=== PATIENT | female | born 1930 | race Caucasian/White ===

== ENCOUNTER 2017-12-24 10:01 | Emergency (ER) | payer OTHER ==
[2017-12-24 10:43] LABS: Arterial Blood Carboxyhemoglob 0.9 % (0-1.5); Blood Gas Oxyhemoglobin 87.2 % (94-97); Blood O2 Saturation 88.9 % (92-98.5)
[2017-12-24 10:55] LABS: Absolute Monocytes 1.6 K/uL (0.1-1.3); Absolute Neutrophil 23.6 K/uL (1.8-8.0); Basophils % 0.1 % (0-1.3); Hematocrit 31.8 % (36.0-45.0); Lymphocytes % 7.3 % (15.3-44.8); MCH 24.1 pg (27.0-35.0); MCV 80.4 fL (80-100); MPV 8.8 fL (7.6-11.3); RBC Red Blood Cell Count 3.96 M/uL (3.86-4.86)
[2017-12-24] MEDS ORDERED: PIPER/TAZO/NS 3.375gm 3.375 GM/100 ML BAG ONE (10:56)
[2017-12-24 10:58] LABS: Protime INR 1.28
[2017-12-24 11:06] LABS: Potassium 3.8 mEq/L (3.6-5.0)
[2017-12-24 11:12] LABS: Albumin 2.3 g/dL (3.2-5.5); Bilirubin Direct 0.1 mg/dL (0-0.2); Bilirubin Total 0.4 mg/dL (0.3-1.2); Protein, Total 7.1 g/dL (6.0-8.3)
--- NOTE | 2017-12-24 11:18 | RAD REPORT ---
EXAM DESCRIPTION: RAD - Chest Single View - 12/24/2017 11:02 am CLINICAL HISTORY: Decreased O2 saturation, possible pneumonia COMPARISON: October 31 chest film, October 29 CT chest TECHNIQUE: AP portable chest image was obtained 1057 hours . FINDINGS: Patient has a baseline interstitial fibrotic pattern. Left base opacification is present w ith left hemidiaphragm and left heart border obscured. The amount of pleural fluid on the left is dim inished slightly from the October examination. Trachea is midline. No measurable right-sided pleural ef fusion. Heart size is normal range. Sternotomy wires are in place. No pneumothorax. No acute bone pro cess identified. No acute aortic findings suspected. IMPRESSION: Left pleural effusion with left base infiltrate and/ or atelectasis. Left pleural effusion is slightly smaller than the October examination.
--- NOTE | 2017-12-24 12:46 | EDPHYS ---
Physician Documentation [facility] Name: Alyssa Alan Age: 87 yrs Sex: Female : 1930 Arrival Date: 12/24/2017 Time: 10:11 Bed 6 Private MD: ED Physician Arden Strauss HPI: 12/24 12:41 This 87 yrs old Female presents to ER via EMS with complaints of Shortness Of gs Breath. 12:41 The patient has shortness of breath at rest. Onset: The symptoms/episode began/occurred gs 2 day(s) ago, and became worse. Duration: The symptoms are continuous. The patient's shortness of breath has no apparent modifying factors. Severity of symptoms: At their worst the symptoms were moderate in the emergency department the symptoms are unchanged. Historical: - Allergies: 10:33 Iodine; ae1 10:33 SHELLFISH; ae1 - Home Meds: 10:33 Tylenol 325 mg oral tab 2 tabs every 6 hours [Active]; GlucaGen HypoKit 1 mg injection ae1 solr [Active]; duloxetine 30 mg oral cpDR 1 cap once daily [Active]; Nystatin Topical [Active]; Lasix 40 mg Oral tab 1 tab once daily [Active]; atenolol 100 mg Oral tab 1 tab once daily [Active]; docusate sodium 100 mg Oral tab 2 tabs once daily for Constipation [Active]; tramadol 50 mg Oral tab 1 tab twice a day [Active]; lisinopril 40 mg Oral tab 1 tab once daily [Active]; potassium chloride 20 mEq Oral pack 1 packet 2 times per day [Active]; Namenda 10 mg oral tab 1 tab 2 times per day [Active]; Norvasc 10 mg Oral tab 1 tab once daily [Active]; levothyroxine 125 mcg tab 1 tab once daily [Active]; trazodone 50 mg Oral tab 1 tab once a day at bedtime [Active]; Myrbetriq 50 mg oral Tb24 1 tab once daily [Active]; Aricept 10 mg Oral tab 1 tab once daily [Active]; lorazepam 1 mg Oral tab 1 tab once daily [Active]; benzonatate 200 mg oral cap 1 cap every eight hours [Active]; [place] 5-325 mg Oral tab 1 tab every 6 hours [Active]; Albuterol Inhl every 6 hours [Active]; Zyrtec 10 mg Oral tab 1 tab once daily [Active]; - PMHx: 10:33 C-1 Fracture; CHF; COPD; Dementia; Diabetes - IDDM; Hypertension; Hypothyroidism; ae1 mesothelioma; - Immunization history:: Adult Immunizations up to date. - Social history:: Smoking status: Patient/guardian denies using tobacco. ROS: 12:41 Unable to obtain ROS due to baseline dementia. gs Exam: 12:41 Head/Face: Normocephalic, atraumatic. Eyes: Pupils equal round and reactive to light, gs extra-ocular motions intact. Lids and lashes normal. Conjunctiva and sclera are non-icteric and not injected. Cornea within normal limits. Periorbital areas with no swelling, redness, or edema. ENT: Nares patent. No nasal discharge, no septal abnormalities noted. Tympanic membranes are normal and external auditory canals are clear. Oropharynx with no redness, swelling, or masses, exudates, or evidence of obstruction, uvula midline. Mucous membranes moist. Neck: Trachea midline, no thyromegaly or masses palpated, and no cervical lymphadenopathy. Supple, full range of motion without nuchal rigidity, or vertebral point tenderness. No Meningismus. Chest/axilla: Normal chest wall appearance and motion. Nontender with no deformity. No lesions are appreciated. 12:41 Abdomen/GI: Soft, non-tender, with normal bowel sounds. No distension or tympany. No guarding or rebound. No evidence of tenderness throughout. Back: No spinal tenderness. No costovertebral tenderness. Full range of motion. Skin: Warm, dry with normal turgor. Normal color with no rashes, no lesions, and no evidence of cellulitis. MS/ Extremity: Pulses equal, no cyanosis. Neurovascular intact. Full, normal range of motion. 12:41 Constitutional: The patient appears alert, awake. 12:41 Cardiovascular: Rate: normal, Rhythm: regular. 12:41 ECG was reviewed by the Attending Physician. 12:41 Respiratory: moderate respiratory distress is noted, Respirations: tachypnea, Breath sounds: rhonchi, wheezin:41 Neuro: Cranial nerves: no acute changes, Motor: moves all fours, Sensation: no obvious gross deficits. Vital Signs: 10:12 BP 138 / 52; Pulse 64; Resp 26; Temp 98.3(TE); Pulse Ox 88% on R/A; Weight 54.43 kg (R);ae1 11:20 BP 133 / 59; Pulse 60; Resp 25; Pulse Ox 93% ; rv 13:45 BP 105 / 81; Pulse 69; Resp 24; Pulse Ox 90% on BiPAP; jl7 14:47 BP 164 / 37; Pulse 56; Resp 22; Pulse Ox 89% on BiPAP; jl7 16:26 BP 112 / 97; Pulse 55; Resp 20; Pulse Ox 92% on BiPAP; ae1 14:47 Patient is pulling on Bipap mask. jl7 MDM: 10:29 Patient medically screened. gs 12:41 Differential diagnosis: Myocardial Infarction pneumonia, pulmonary edema, Sepsis. Data gs reviewed: vital signs, nurses notes. ED course: daughter who is mpoa wishes to place on hospice and says also is pts wishes. will make arrangements for oodnr and return to me on hospice. 12/24 10:25 Order name: Glucose, Ancillary Testing; Complete Time: 10:30 EDMS 12/24 10:31 Order name: Basic Metabolic Panel; Complete Time: 11:45 12/24 10:31 Order name: Blood Culture Adult (2) 12/24 10:31 Order name: BNP; Complete Time: 11:45 12/24 10:31 Order name: CBC with Diff; Complete Time: 11:45 12/24 10:31 Order name: Lactate; Complete Time: 11:45 12/24 10:31 Order name: LFT's; Complete Time: 11:45 12/24 10:31 Order name: Lipase; Complete Time: 11:45 12/24 10:31 Order name: Procalcitonin; Complete Time: 11:45 12/24 10:31 Order name: Protime (+inr); Complete Time: 11:45 12/24 10:31 Order name: Troponin (emerg Dept Use Only); Complete Time: 11:45 12/24 10:31 Order name: Chest Single View XRAY; Complete Time: 11:45 12/24 10:31 Order name: BIPAP 12/24 10:31 Order name: ABG; Complete Time: 11:45 12/24 10:31 Order name: Accucheck; Complete Time: 10:38 12/24 10:31 Order name: Cardiac monitoring; Complete Time: : 12/24 10:31 Order name: EKG - Nurse/Tech; Complete Time: 12/24 10:31 Order name: IV Saline Lock - Large Bore; Complete Time: 12/24 10:31 Order name: Labs collected and sent; Complete Time: 10: 12/24 10:31 Order name: O2 Per Protocol; Complete Time: 12/24 10:31 Order name: O2 Sat Monitoring; Complete Time: 12/24 10:31 Order name: Urine Dipstick-Ancillary (obtain specimen) EC:41 Rate is 64 beats/min. Rhythm is regular. AK interval is normal. QRS interval is gs prolonged. T waves are Normal. No ST changes noted. Clinical impression: NSR w/ Non-specific ST/T Changes. Interpreted by me. Administered Medications: 11:17 Drug: Zosyn 3.375 grams Route: IVPB; Infused Over: 60 mins; Site: right antecubital; rv Disposition: 12/24/17 12:46 Discharged to Home. Impression: Pneumonia, unspecified organism. - Condition is Stable. - Discharge Instructions: Pneumonia, Adult. - Medication Reconciliation Form, Thank You Letter, Antibiotic Education, Prescription Opioid Use form. - Follow up: Private Physician; When: 2 - 3 days; Reason: Re-evaluation by your physician. Signatures: Dispatcher [employer] Geovanny Mensah RN RN ae1 Arden Strauss MD MD James Medina RN RN rv Corrections: (The following items were deleted from the chart) 17:06 12:46 12/24/2017 12:46 Discharged to Home. Impression: Pneumonia, unspecified organism. ae1 Condition is Stable. Forms are Medication Reconciliation Form, Thank You Letter, Antibiotic Education, Prescription Opioid Use. Follow up: Private Physician; When: 2 - 3 days; Reason: Re-evaluation by your physician. gs
--- NOTE | 2017-12-24 12:46 | ER ---
Nurse's Notes [facility] Name: Alyssa Alan Age: 87 yrs Sex: Female : 1930 Arrival Date: 12/24/2017 Time: 10:11 Bed 6 Private MD: Diagnosis: Pneumonia, unspecified organism Presentation: 12/24 10:14 Presenting complaint: EMS states: EMS states patient was at [facility] for femur fx ae1 and has since been diagnosed with pneumonia, nurse at care home stated patient's O2 saturation was in the 70s. Transition of care: [facility]. Onset of symptoms was December 24, 2017. Initial Sepsis Screen: Does the patient meet any 2 criteria? RR > 20 per min. Altered Mental Status. Does the patient have a suspected source of infection? Yes: Productive cough/pneumonia Skin breakdown/wound. Care prior to arrival: Glucose check: 206 V/S 132/65, HR in the 60s. 10:14 Method Of Arrival: EMS: [facility] ae1 10:14 Acuity: BETTY 2 ae1 Triage Assessment: 11:23 General: Appears. rv 11:26 General: Behavior is anxious, crying. Respiratory: Reports observed behavior: patient rv is confused. Onset: The symptoms/episode began/occurred gradually, the patient has moderate shortness of breath. Historical: - Allergies: 10:33 Iodine; ae1 10:33 SHELLFISH; ae1 - Home Meds: 10:33 Tylenol 325 mg oral tab 2 tabs every 6 hours [Active]; GlucaGen HypoKit 1 mg injection ae1 solr [Active]; duloxetine 30 mg oral cpDR 1 cap once daily [Active]; Nystatin Topical [Active]; Lasix 40 mg Oral tab 1 tab once daily [Active]; atenolol 100 mg Oral tab 1 tab once daily [Active]; docusate sodium 100 mg Oral tab 2 tabs once daily for Constipation [Active]; tramadol 50 mg Oral tab 1 tab twice a day [Active]; lisinopril 40 mg Oral tab 1 tab once daily [Active]; potassium chloride 20 mEq Oral pack 1 packet 2 times per day [Active]; Namenda 10 mg oral tab 1 tab 2 times per day [Active]; Norvasc 10 mg Oral tab 1 tab once daily [Active]; levothyroxine 125 mcg tab 1 tab once daily [Active]; trazodone 50 mg Oral tab 1 tab once a day at bedtime [Active]; Myrbetriq 50 mg oral Tb24 1 tab once daily [Active]; Aricept 10 mg Oral tab 1 tab once daily [Active]; lorazepam 1 mg Oral tab 1 tab once daily [Active]; benzonatate 200 mg oral cap 1 cap every eight hours [Active]; [place] 5-325 mg Oral tab 1 tab every 6 hours [Active]; Albuterol Inhl every 6 hours [Active]; Zyrtec 10 mg Oral tab 1 tab once daily [Active]; - PMHx: 10:33 C-1 Fracture; CHF; COPD; Dementia; Diabetes - IDDM; Hypertension; Hypothyroidism; ae1 mesothelioma; - Immunization history:: Adult Immunizations up to date. - Social history:: Smoking status: Patient/guardian denies using tobacco. Screenin:56 Abuse screen: Denies threats or abuse. Nutritional screening: No deficits noted. ae1 Tuberculosis screening: No symptoms or risk factors identified. Fall Risk No fall in past 12 months (0 pts). Secondary diagnosis (15 points) Alzheimer's, IV access (20 points). Ambulatory Aid- None/Bed Rest/Nurse Assist (0 pts). Gait- Normal/Bed Rest/Wheelchair (0 pts) Mental Status- Overestimates/Forgets Limitations (15 pts.). Assessment: 10:39 Pain: Unable to use pain scale. Patient is disoriented. Neuro: Level of Consciousness ae1 is awake, confused, Oriented to person. Cardiovascular: Heart tones S1 S2 present Rhythm is regular. Respiratory: Airway is patent Respiratory effort is labored, shallow, Respiratory pattern is regular, Breath sounds are coarse bilaterally. Breath sounds are diminished bilaterally. GI: Abdomen is flat, non-distended, Bowel sounds present X 4 quads. Derm: Wound noted left tricep. 10:58 Reassessment: Accepted critical lab value from Gloria in lab via telephone, WBC 27.2 and ae1 Hgb 9.5. Provider notified. 11:30 Reassessment: Bipap applied. patient less labored. doctor notified. appears more rv comfortable. 13:02 Reassessment: Called Janeth Jackson to give report to receiving nurse, spoke to Claudio via ae1 telephone, Claudio states patient's DNR must be completed before patient can be transferred back to facility. Relayed information provided by [facility] that DNR must be signed by patient's doctor and not the ER doctor. Claudio states "that's not fair, now she's going to be here for two days without a DNR." Escalated to Charge Nurse on duty. 13:50 Reassessment: Patient appears in no apparent distress at this time. Patient states ae1 symptoms have improved. 14:52 Reassessment: Spoke to Leigh Ann via telephone to give report. Leigh Ann states she is ae1 arranging transportation back to [facility]. Vital Signs: 10:12 BP 138 / 52; Pulse 64; Resp 26; Temp 98.3(TE); Pulse Ox 88% on R/A; Weight 54.43 kg (R);ae1 11:20 BP 133 / 59; Pulse 60; Resp 25; Pulse Ox 93% ; rv 13:45 BP 105 / 81; Pulse 69; Resp 24; Pulse Ox 90% on BiPAP; jl7 14:47 BP 164 / 37; Pulse 56; Resp 22; Pulse Ox 89% on BiPAP; jl7 16:26 BP 112 / 97; Pulse 55; Resp 20; Pulse Ox 92% on BiPAP; ae1 14:47 Patient is pulling on Bipap mask. jl7 ED Course: 10:11 Patient arrived in ED. ae1 10:13 Arden Strauss MD is Attending Physician. gs 10:17 Triage completed. ae1 10:30 Patient has correct armband on for positive identification. Placed in gown. Bed in low rv position. Call light in reach. Side rails up X2. Arm band placed on right wrist. 10:30 Inserted saline lock: 20 gauge in right antecubital area, using aseptic technique. rv 10:38 Geovanny Persaud, JAZMÍN is Primary Nurse. ae1 10:57 X-ray completed. Portable x-ray completed in exam room. Patient tolerated procedure la2 well. 10:58 Chest Single View XRAY In Process Unspecified. EDMS 11:00 EKG completed in triage. Results shown to MD. rv 11:00 Inserted saline lock: 20 gauge in left antecubital area, using aseptic technique. ae1 ,using aseptic technique. 2nd set of blood cultures obtained at this time. Blood collected. 11:24 Inserted saline lock:. rv 11:28 monitoring coordinator on. Pulse ox on. NIBP on. Warm blanket given. Pillow given. rv 17:05 No provider procedures requiring assistance completed. IV discontinued, intact, ae1 bleeding controlled, No redness/swelling at site. Pressure dressing applied. Administered Medications: 11:17 Drug: Zosyn 3.375 grams Route: IVPB; Infused Over: 60 mins; Site: right antecubital; rv Outcome: 12:46 Discharge ordered by . dina 17:05 Discharged to care home. Report called to [place] transportation service. ae1 17:05 Condition: stable 17:05 Discharge instructions given to care home, Instructed on discharge instructions, follow up and referral plans. Demonstrated understanding of instructions. 17:06 Patient left the ED. ae1 Signatures: Dispatcher [employer] EDMS Geovanny Persaud, RN RN ae1 Suyapa Andrade RN RN jl7 Arden Strauss MD MD gs Ardoin, Leslie la2 James Medina, RN RN rv Corrections: (The following items were deleted from the chart) 11:30 11:24 Arm band placed on right wrist. rv rv 11:30 11:24 EKG completed in triage. Results shown to MD. rv rv 11:30 11:28 Patient has correct armband on for positive identification. Placed in gown. Bed rv in low position. Call light in reach. Side rails up X2. rv
[2017-12-24 17:10] VITALS: TEMP 98.3
[2017-12-24 17:15] VITALS: BP 112/97; O2SAT 92
--- NOTE | 2017-12-25 10:44 | EKG ---
Test Date: 2017-12-24 Test Time: 10:12:08 Industrial [employer]il[employer]: JENNIFER MEASUREMENT RESULTS: Intervals: Rate: 64 [place]: 136 QRSD: 118 QT: 440 QTc: 453 [place]: P: 82 [place]: 136 QRS: 73 T: 104 INTERPRETIVE STATEMENTS: Normal sinus rhythm ST and T wave abnormality, non specific Abnormal ECG Compared to ECG 10/23/2017 08:01:13 Sinus tachycardia no longer present Atrial premature complex(es) no longer present First degree AV block no longer present ST and T-wave abnormality still present Electronically Signed On 12-25-17 10:43:29 CDT by Valentino Resendiz
== END 2017-12-24 17:06 | disposition home or self-care (01) ==
LOC: ER 10:01
DX: J18.9 Pneumonia, unspecified organism (principal); I10 Essential (primary) hypertension; E11.9 Type 2 diabetes mellitus without complications; I50.9 Heart failure, unspecified; F03.90 Unspecified dementia, unspecified severity, without behavioral disturbance, psychotic disturbance, mood disturbance, and anxiety; Z91.013 Allergy to seafood; Z91.048 Other nonmedicinal substance allergy status
CPT/HCPCS: 36415 ×2; 71045; 80048 ×2; 80076; 82805; 82962; 83605; 83690; 83880; 84145; 84484; 85025 ×2; 85610; 87040 ×2; 93005; 94660; 96374; 99284; J2543